=== PATIENT | male | born 1955 | race Caucasian/White ===

== ENCOUNTER → 2019-03-28 16:04 | Outpatient (CLI) | payer OTHER, MEDICARE, SELFPAY ==
--- NOTE | 2019-03-28 | DI.US.S_ITS ---
PROCEDURE: US ABDOMEN COMPLETE INDICATIONS: ABNORMAL LIVER FUNCTION TESTS TECHNIQUE: Real-time scanning was performed of the abdominal and retroperitoneal organs, with image documentation. COMPARISON: None. FINDINGS: Liver: Liver is diffusely echogenic and measures 17.8 cm in length. There is presumed focal fatty sparing near the gallbladder fossa Gallbladder: Cholelithiasis measuring up 6 mm. No pericholecystic fluid or sonographic Sosa sign. Additional cluster of smaller calculi noted. Biliary ducts: Intrahepatic bile ducts are non-dilated. Extrahepatic bile duct caliber measures 5 mm. Normal is 6-7 mm or less in diameter, or 10 mm or less post-cholecystectomy. Pancreas: Visualized portions of the pancreas are sonographically normal. Spleen: Spleen is normal in size and homogeneous in echotexture. Kidneys: Kidneys are normal in size and echotexture. Right kidney measures 12.9 cm long; left kidney measures 13.4 cm long. No hydronephrosis or nephrolithiasis. No solid masses. Right renal simple appearing cyst measuring 1.9 cm Aorta: Visualized aorta is normal in caliber at less than 3 cm. however the mid segment is not well visualized. There are atherosclerotic changes Iliacs: Proximal common iliac arteries are normal in caliber at less than 2.5 cm. IVC: Intrahepatic inferior vena cava is patent. Miscellaneous: No free abdominal fluid. IMPRESSION: Cholelithiasis without other sonographic trachea for acute cholecystitis. Please correlate clinically and with LFTs. Simple appearing right renal cyst. Coarse echogenic liver suggesting diffuse hepatocellular disease/fatty infiltration. Please correlate with LFTs. Dictated by: Ulysses Moura M.D. on 03/28/2019 at 17:06 Approved by: Ulysses Moura M.D. on 03/28/2019 at 17:08
== END ==
PROVIDERS: PCP Internal Medicine; Visit Provider Internal Medicine
DX: R94.5 Abnormal results of liver function studies (principal); K80.20 Calculus of gallbladder without cholecystitis without obstruction; N28.1 Cyst of kidney, acquired
CPT/HCPCS: 76700